=== PATIENT | female | born 2000 | race Caucasian/White ===

== ENCOUNTER → 2020-08-05 08:25 | Outpatient (BNVA) | payer MEDICAID, SELFPAY | PROVIDERS: Visit Provider Obstetrics & Gynecology | DX: Z11.3 Encounter for screening for infections with a predominantly sexual mode of transmission (principal); N89.8 Other specified noninflammatory disorders of vagina; Z12.4 Encounter for screening for malignant neoplasm of cervix; N39.0 Urinary tract infection, site not specified; R39.9 Unspecified symptoms and signs involving the genitourinary system; N93.9 Abnormal uterine and vaginal bleeding, unspecified | CPT/HCPCS: 81000; 87086; 87481; 87491; 87512; 87591; 87661; 87798; 87799; 88175 ==

== ENCOUNTER → 2020-08-19 14:15 | Outpatient (BNVA) | payer MEDICAID, SELFPAY | PROVIDERS: Visit Provider Obstetrics & Gynecology | DX: N92.6 Irregular menstruation, unspecified (principal) | CPT/HCPCS: 76830 ==